=== PATIENT | female | born 1985 | race Caucasian/White ===

== ENCOUNTER 2016-08-31 19:39 | Emergency (ER) | payer OTHER ==
[2016-08-31] MEDS ORDERED: KETOROLAC TROMETHAMINE 30 MG/ML 1 ML VIAL ONE (20:59)
[2016-08-31 21:20] LABS: ABSOLUTE NEUTROPHIL COUNT 4.7 K/mm3 (1.8-7.7); BASO # 0.1 K/mm3 (0.0-0.2); BASO % 1.3 % (0.2-1.0); EOS # 0.2 (0.0-0.5); EOS % 2.4 % (0.9-2.9); HEMATOCRIT 36.7 % (37.0-47.0); HEMOGLOBIN 11.4 gm/l (12.0-16.0); IMM NEUT% 0.2 % (0-1); LYMPH # 3.4 (1.0-4.8); LYMPH % 38.3 % (15-45); MEAN CELL VOLUME 94.8 fl (81.0-99.0); MEAN CORPUSCULAR HEMOGLOBIN 29.5 pg (27.0-31.0); MEAN CORPUSCULAR HGB CONC 31.1 g/dl (33.0-37.0); MEAN PLATELET VOLUME 10.2 fl (7.4-10.4); MONO # 0.5 (0.0-0.8); MONO % 5.5 % (4-12); NEUT % 52.3 % (43-75); PLATELET COUNT 317 K/mm3 (130-400)
[2016-08-31 21:35] LABS: ALB/GLOB RATIO 1.4 (>1.0); ALBUMIN 3.6 gm/dL (3.5-5.7); CALCIUM 8.4 mg/dL (8.6-10.3)
[2016-08-31 21:38] LABS: SPECIFIC GRAVITY 1.025 (1.001-1.030); URINE BILIRUBIN NEGATIVE (NEGATIVE); URINE BLOOD 2+ (NEGATIVE); URINE GLUCOSE (UA) NEGATIVE (NEGATIVE); URINE LEUKOCYTE ESTERASE TRACE (NEGATIVE); URINE NITRITE NEGATIVE (NEGATIVE); URINE PROTEIN NEGATIVE (NEGATIVE); URINE UROBILINOGEN NORMAL (0-1 mg/dl)
[2016-08-31 21:50] LABS: HCG,QUALITATIVE URINE NEGATIVE
[2016-08-31 21:57] LABS: URINE APPEARANCE CLEAR; URINE COLOR YELLOW
[2016-08-31 21:59] LABS: URINE RBC 0-2 /hpf; URINE WBC 0-2 /hpf
[2016-08-31 22:01] LABS: URINE BACTERIA RARE
--- NOTE | 2016-09-01 08:08 | US ---
PELVIC COMPLETE, TRANSVAGINAL ECHOGRAPHY COMPARISON: None. HISTORY: 31 years old. LMP 08/30/2016. Heavy vaginal bleeding for one day. . Surgeries include tubal ligation and 1 . Technique: Transabdominal and transvaginal. FINDINGS: Uterus: Retroverted. Normal size, length 9.3 cm by AP 5.3 cm by transverse 6.6 cm. Endometrium: Normal thickness of 8 mm with some scattered dystrophic calcifications.. Right ovary: 4.1 x 4.5 x 4.0 cm. Volume 39.4 mL. Normal blood flow. Multiple follicles, including a complex cyst, 2.7 x 2.4 x 2.7 cm. Left ovary: 3.1 x 1.9 x 2.4 cm. Volume 7.4 mL. Normal blood flow. Adnexa mass: None Fluid: Minimal. IMPRESSION: 1. The cause for heavy vaginal bleeding is not identified. There is no evidence of an endometrial or uterine mass to cause of bleeding. 2. Normal endometrial thickness with some scattered dystrophic calcifications. 3. Right ovarian cyst, up to 2.7 x 2.4 x 2.7 cm, with some internal debris/hemorrhage. No follow-up recommended. Preliminary report by [facility] radiologist Shaq Moore MD 08/31/2016 at 22:19
== END 2016-08-31 22:25 | disposition home or self-care (01) ==
LOC: ED 19:39
DX: N93.9 Abnormal uterine and vaginal bleeding, unspecified (principal); F17.210 Nicotine dependence, cigarettes, uncomplicated
CPT/HCPCS: 81025; 85025; 87086; 80053; 81001; 76856; 76830; 99283 ×2; 96374; J1885